=== PATIENT | male | born 1945 | race Caucasian/White ===

== ENCOUNTER 2020-04-06 14:49 | Outpatient (CLI) | payer MEDICARE, SELFPAY ==
--- NOTE | 2020-04-06 15:04 | MR_ITS ---
WS: [id number] MRI LEFT KNEE HISTORY: CURRENT LEFT KNEE PERIPHERAL MEDIAL MENISCUS TEAR COMPARISON: None available. Anterior cruciate ligament: Intact. Posterior cruciate ligament: Intact. Medial collateral ligament: Increased signal surrounding the MCL without a tear. Posterior lateral corner structures: Intact. Medial menisci: Horizontal tear posterior horn extends to the inferior articular surface. There is fr aying and blunting of the free edge. Lateral meniscus: Intact. Normal signal, size and shape. Extensor mechanism: Distal quadriceps tendon and patellar tendons are intact. Fluid and soft tissue: Moderate size suprapatellar joint effusion. Soft tissue edema surrounding the knee. No Quinteros's cyst. Osseous and articular structures: Patellofemoral compartment: Normal. Medial compartment: Mild narrowing of the medial compartment with thinning and fissuring of the carti michele. Near full-thickness 4 mm defect along the medial femoral condyle. Small amount of edema in the medial tibial plateau. No fracture. Lateral compartment: Mild narrowing of the joint space with thinning and fissuring of the cartilage. MR/MR knee LT wo con* [id number] IMPRESSION: 1. Horizontal tear posterior horn medial meniscus. 2. Moderate joint effusion. 3. Soft tissue edema surrounding the knee. 4. Mild MCL sprain. 5. Medial and lateral compartment joint space narrowing with mild thinning of the cartilage and near full-thickness defect in the medial femoral condyle.
== END 2020-04-06 14:50 | disposition home or self-care (01) ==
LOC: RADSHAW 15:01
PROVIDERS: PCP Family Medicine; Visit Provider Family Medicine
DX: S83.222A Peripheral tear of medial meniscus, current injury, left knee, initial encounter (principal); M25.462 Effusion, left knee; R60.0 Localized edema; S83.412A Sprain of medial collateral ligament of left knee, initial encounter; X58.XXXA Exposure to other specified factors, initial encounter
CPT/HCPCS: 73721

== ENCOUNTER → 2020-04-15 13:31 | Outpatient (BNVA) | payer MEDICARE, SELFPAY | PROVIDERS: PCP Family Medicine; Referring Provider Family Medicine; Visit Provider Orthopaedic Surgery | DX: M25.562 Pain in left knee (principal); M17.12 Unilateral primary osteoarthritis, left knee | CPT/HCPCS: 73560; 73565 ==

== ENCOUNTER → 2021-09-30 09:09 | Outpatient (BNVA) | payer MEDICARE, SELFPAY | PROVIDERS: PCP Family Medicine; Visit Provider Surgery | DX: S83.207A Unspecified tear of unspecified meniscus, current injury, left knee, initial encounter (principal); X58.XXXA Exposure to other specified factors, initial encounter; M17.12 Unilateral primary osteoarthritis, left knee | CPT/HCPCS: 87635 ==

== ENCOUNTER 2021-10-06 06:59 | Day surgery (SDC) | payer MEDICARE, SELFPAY ==
[2021-10-04 09:18] VITALS: BMI 25.7
[2021-10-06 07:45] VITALS: BP 151/82; PULSE 79; RESP 16; TEMP 36.3; O2SAT 96
[2021-10-06] MEDS: sodium chloride 0.9% 1,000 ML 30 ML IV (07:49)
--- NOTE | 2021-10-06 08:24 | P.HP_ITS ---
Same Day Surgery H&P Indication for Procedure/HPI DATE OF PROCEDURE: October 06, 2021 CHIEF COMPLAINT/INDICATIONFOR SURGICAL PROCEDURE: screening PREOP DIAGNOSIS: diagnostic PLANNED PROCEDURE: Operation Date: 10/06/21 08:30 Proposed Procedures p Colonoscopy 50986/z12.11(Not Applicable) - Lex Velez MD Medications/Allergies* Home Medications Medication Instructions Recorded Confirmed Type hydrochlorothiazide 25 mg tablet 25 mg PO DAILY 04/15/20 10/04/21 History simvastatin 20 mg tablet 20 mg PO DAILY 04/15/20 10/04/21 History tamsulosin 0.4 mg capsule 0.4 mg PO DAILY 04/15/20 10/04/21 History glucosamine sulfate 500 mg tablet 500 mg PO DAILY 10/04/21 10/04/21 History (Glucosamine) tumeric 100 mg-sumaya 150 mg-olive 1 cap PO DAILY 10/04/21 10/04/21 History 50 mg-oreg 150 mg-caprylate capsule Allergies/Adverse Reactions Allergy/AdvReac Type Severity Reaction Status Date / Time No Known Allergies Allergy Verified 10/06/21 07:48 Current Medications: Generic Name Dose Route Start Last Admin Trade Name Freq PRN Reason Stop Dose Admin Sodium Chloride 1,000 mls @ 30 mls/hr 10/06/21 07:15 10/06/21 07:49 Sodium Chloride 0.9% IV 10/07/21 07:14 30 mls/hr .Q24H JENNIFER Administration Pertinent Exam Findings alert, oriented x 3 and regular rate & rhythm Recommendations Surgery/Procedure today Coding Level of Care Code Acute [employer] for Bonifacio Gardner
[2021-10-06 08:52] VITALS: BP 95/65; PULSE 73; RESP 16; TEMP 36.1; O2SAT 94
[2021-10-06 09:00] VITALS: BP 116/66; PULSE 78; RESP 16; O2SAT 94
--- NOTE | 2021-10-06 15:43 | ANE.PACU2 ---
Inpatient post-anesthesia follow up: Airway intact: Yes Vital signs: Temperature 97.0 F Pulse Rate 78 Respiratory Rate 16 Blood Pressure 116/66 Pulse Oximetry 94 Oxygen Delivery Me thod Room Air Oxygen Flow Rate Fraction of Inspir ed Oxygen Hydration adequate: Yes Nausea and vomiting: No Pain level: 1 Mental status: Baseline
== END 2021-10-06 09:20 | disposition home or self-care (01) ==
PROVIDERS: PCP Family Medicine; Visit Provider Surgery
PROC: 0DJD8ZZ Inspection of Lower Intestinal Tract, Via Natural or Artificial Opening Endoscopic (ICD-10-PCS; CPT 45378; principal; 2021-10-06 08:30)
DX: Z12.11 Encounter for screening for malignant neoplasm of colon (principal); K57.30 Diverticulosis of large intestine without perforation or abscess without bleeding; K64.8 Other hemorrhoids
CPT/HCPCS: G0121; J2704; J7030

== ENCOUNTER → 2022-01-04 10:49 | Outpatient (BNVA) | payer MEDICARE, SELFPAY | PROVIDERS: PCP Family Medicine; Visit Provider Urology | DX: N40.1 Benign prostatic hyperplasia with lower urinary tract symptoms (principal) | CPT/HCPCS: 84153 ==

== ENCOUNTER → 2022-08-04 13:42 | Outpatient (BNVA) | payer MEDICARE, SELFPAY | PROVIDERS: PCP Family Medicine; Visit Provider Nurse Practitioner Family | DX: M54.50 Low back pain, unspecified (principal); N39.0 Urinary tract infection, site not specified | CPT/HCPCS: 81000; 87086 ==

== ENCOUNTER 2022-08-23 12:35 | Outpatient (CLI) | payer MEDICARE, SELFPAY ==
--- NOTE | 2022-08-23 13:03 | XRR_ITS ---
PROCEDURE INFORMATION: Exam: XR Chest Exam date and time: 08/23/2022 1:04 PM Age: 76 years old Clinical indication: Patient HX: Cough/congestion for 2 weeks TECHNIQUE: Imaging protocol: Radiologic exam of the chest. Views: 2 views. COMPARISON: No relevant prior studies available. FINDINGS: Lungs: Unremarkable. No consolidation. Pleural spaces: Unremarkable. No pleural effusion. No pneumothorax. Heart/Mediastinum: Unremarkable. No cardiomegaly. Bones/joints: There is old healed fracture of the left lateral ribcage and mild degenerative changes of the thoracic spine. XR/XR chest 2V* [id number] IMPRESSION: Negative for cardiopulmonary disease.
== END 2022-08-23 12:36 | disposition home or self-care (01) ==
LOC: RAD 12:39
PROVIDERS: PCP Family Medicine; Visit Provider Family Medicine
DX: R05.9 Cough, unspecified (principal)
CPT/HCPCS: 71046; 87400

== ENCOUNTER → 2022-08-24 13:33 | Outpatient (BNVA) | payer MEDICARE, SELFPAY | PROVIDERS: PCP Family Medicine; Visit Provider Family Medicine | DX: R05.9 Cough, unspecified (principal) | CPT/HCPCS: 87426 ==

== ENCOUNTER → 2023-01-19 16:20 | Outpatient (BNVA) | payer MEDICARE, SELFPAY | PROVIDERS: PCP Family Medicine; Visit Provider Family Medicine | DX: N40.1 Benign prostatic hyperplasia with lower urinary tract symptoms (principal) | CPT/HCPCS: 84153 ==

== ENCOUNTER → 2023-03-07 14:37 | Outpatient (BNVA) | payer MEDICARE, SELFPAY | PROVIDERS: PCP Family Medicine; Visit Provider Family Medicine | DX: G60.9 Hereditary and idiopathic neuropathy, unspecified (principal) | CPT/HCPCS: 80053; 82607; 84443; 85025; 86140 ==

== ENCOUNTER → 2023-07-05 10:43 | Outpatient (BNVA) | payer MEDICARE, SELFPAY | PROVIDERS: PCP Family Medicine; Visit Provider Family Medicine | DX: R31.9 Hematuria, unspecified (principal) | CPT/HCPCS: 81000; 87086 ==

== ENCOUNTER → 2023-08-24 12:58 | Outpatient (BNVA) | payer MEDICARE, SELFPAY | PROVIDERS: PCP Family Medicine; Visit Provider Family Medicine | DX: R05.9 Cough, unspecified (principal); R50.9 Fever, unspecified | CPT/HCPCS: 81000; 87426 ==

== ENCOUNTER → 2024-05-01 09:02 | Outpatient (BNVA) | payer MEDICARE, SELFPAY | PROVIDERS: PCP Family Medicine; Visit Provider Family Medicine | DX: R97.20 Elevated prostate specific antigen [PSA] (principal) | CPT/HCPCS: 84153 ==

== ENCOUNTER → 2024-05-21 10:09 | Outpatient (BNVA) | payer MEDICARE, SELFPAY | PROVIDERS: PCP Family Medicine; Visit Provider Family Medicine | DX: J06.9 Acute upper respiratory infection, unspecified (principal) | CPT/HCPCS: 87426 ==

== ENCOUNTER → 2025-03-20 13:28 | Outpatient (BNVA) | payer MEDICARE, SELFPAY | PROVIDERS: PCP Family Medicine; Visit Provider Family Medicine | DX: G25.81 Restless legs syndrome (principal); G60.9 Hereditary and idiopathic neuropathy, unspecified | CPT/HCPCS: 82607; 83540 ==

== ENCOUNTER → 2025-04-30 11:35 | Outpatient (BNVA) | payer MEDICARE, SELFPAY | PROVIDERS: PCP Family Medicine; Visit Provider Family Medicine | DX: N40.0 Benign prostatic hyperplasia without lower urinary tract symptoms (principal) | CPT/HCPCS: 84153 ==